=== PATIENT | female | born 1935 | race Caucasian/White ===

== ENCOUNTER → 2016-12-05 | Outpatient (CLI) | payer MEDICARE | END | disposition home or self-care (01) | LOC: PCVCCLINIC 10:05 | PROVIDERS: ATTEND Internal Medicine Cardiovascular Disease | DX: I25.10 Atherosclerotic heart disease of native coronary artery without angina pectoris (principal); R07.9 Chest pain, unspecified; I25.5 Ischemic cardiomyopathy; I10 Essential (primary) hypertension; E78.00 Pure hypercholesterolemia, unspecified; I77.9 Disorder of arteries and arterioles, unspecified; I34.0 Nonrheumatic mitral (valve) insufficiency | CPT/HCPCS: 93005; G0463 ==

== ENCOUNTER → 2017-05-17 | Outpatient (CLI) | payer MEDICARE | END | disposition home or self-care (01) | LOC: PCVCCLINIC 13:42 | PROVIDERS: ATTEND Internal Medicine Cardiovascular Disease | DX: I25.10 Atherosclerotic heart disease of native coronary artery without angina pectoris (principal); I10 Essential (primary) hypertension; E78.00 Pure hypercholesterolemia, unspecified; I34.0 Nonrheumatic mitral (valve) insufficiency; I25.5 Ischemic cardiomyopathy; M19.90 Unspecified osteoarthritis, unspecified site; Z95.5 Presence of coronary angioplasty implant and graft; Z79.82 Long term (current) use of aspirin; Z88.2 Allergy status to sulfonamides | CPT/HCPCS: 80061; 93005; G0463 ==

== ENCOUNTER → 2017-05-30 | Outpatient (CLI) | payer MEDICARE ==
--- NOTE | 2017-05-30 16:37 | PCVCIMAG ---
APPROVED REPORT Exam: Nuclear Stress Test Indication: CAD, Fatigue, Anginal Equivalen- Back Pain Patient Location: Out-Patient Stress Nurse: Bailey Pickens RN, Nuvia Mancera RN GA Tech:Serafin Desouza NMTCB Ht: 5 ft 5 in Wt: 120 lbs BSA: 1.59 m2 HR: 62 bpm BP: 127/61 mmHg BMI: 19.9 Rhythm: NSR Medical History Medical History: Age, Hyperlipidemia, HTN, Mitral Insuff, CAD Medications: ASA, Clopidogrel,Metoprol (held 24 hours) Ditropan, Protonix, Ranexa, Crestor Allergies: Statins, Sulfa Previous Cardiac Procedures: PCI, RCA 40% LM Exercise History: Physically active for age NM EXAM: Myocardial Perfusion REST/STRESS Imaging Protocol: Rest Tc-99m/Stress Tc-99m 1 day Resting Data Rest SPECT myocardial perfusion imaging was performed in supine position 45 minutes following the intravenous injection of 9.6 mCi of Tc-99m Sestamibi. Time of rest injection: 0930 Date: 05/30/2017 Pharmacologic Stress Pharmacologic stress test was performed by injecting Regadenoson 0.4 mg IV push followed by the intravenous injection of 27.4 mCi of Tc-99m Sestamibi. Time of stress injection: 1100 Date: 05/30/2017 The images were gated to evaluate regional wall motion and calculate left ventricular ejection fraction. Study Quality Study: Good Study Data Post stress, the left ventricular ejection was 76%.. SSS: 1 SRS: 0 SDS: 1 TID = 1.08. Perfusion There is a small area of moderately reduced uptake in the apical segment of the anterior wall which is seen on the stress images as well as the resting images. No evidence of stress induced ischemia.. Wall Motion Normal left ventricular size and function with no regional wall motion abnormalities. Nuclear Conclusion No evidence of stress induced ischemia.. Normal left ventricular size and function with no regional wall motion abnormalities. Post stress, the left ventricular ejection was 76%.. No prior study available for comparison. Interpreted by: Kp Washington MD Electronically Approved: 05/30/2017 12:55:23 Stress Test Details Stress Test: Pharmacologic stress was paired with low level exercise. HR Resting HR: 62 bpmMax Heart Rate (APMHR): 140 bpm Max HR Achieved: 113 bpmTarget HR (85% APMHR): 119 bpm % of APMHR: 80 Recovery HR: 77 bpm BP Resting BP: 127/61 mmHg Max BP: 144/78 mmHg ECG Resting ECG: Sinus Rhythm Stress ECG: Sinus Tachycardia, NSSTT changes ST Change: Downsloping ST depression, Inferior Maximum ST Deviation: 1.5 mm Arrhythmia: None Recovery ECG: Sinus Rhythm, nonspecific ST-T abnormalities Clinical Reason for Termination: Completed protocol Stress Symptoms: Dyspnea Exercise duration: min 55 sec Exercise capacity: 1.6 METs Stress ECG Conclusion Abnormal exercise stress ECG consistent with stress-induced myocardial ischemia. poss false pos in female pop <Conclusion> Abnormal exercise stress ECG consistent with stress-induced myocardial ischemia. poss false pos in female pop
== END | disposition home or self-care (01) ==
LOC: PCVCIMAG 09:07
PROVIDERS: ATTEND Internal Medicine Cardiovascular Disease
DX: I25.10 Atherosclerotic heart disease of native coronary artery without angina pectoris (principal); I10 Essential (primary) hypertension; E78.5 Hyperlipidemia, unspecified; M54.5 Low back pain; K52.9 Noninfective gastroenteritis and colitis, unspecified; I34.0 Nonrheumatic mitral (valve) insufficiency; R94.31 Abnormal electrocardiogram [ECG] [EKG]; Z95.5 Presence of coronary angioplasty implant and graft
CPT/HCPCS: 78452; 93017; A9500

== ENCOUNTER → 2017-12-19 | Outpatient (CLI) | payer MEDICARE | END | disposition home or self-care (01) | LOC: PCVCCLINIC 10:32 | DX: I25.10 Atherosclerotic heart disease of native coronary artery without angina pectoris (principal); I10 Essential (primary) hypertension; G20 Parkinson's disease; I34.0 Nonrheumatic mitral (valve) insufficiency; R53.83 Other fatigue; R94.31 Abnormal electrocardiogram [ECG] [EKG]; Z79.82 Long term (current) use of aspirin; Z79.899 Other long term (current) drug therapy | CPT/HCPCS: 80061; 93005; G0463 ==

== ENCOUNTER → 2018-08-07 | Outpatient (CLI) | payer MEDICARE | END | disposition home or self-care (01) | LOC: PCVCCLINIC 14:25 | PROVIDERS: ATTEND Internal Medicine Cardiovascular Disease | DX: I25.10 Atherosclerotic heart disease of native coronary artery without angina pectoris (principal); I34.0 Nonrheumatic mitral (valve) insufficiency; I25.5 Ischemic cardiomyopathy; E78.00 Pure hypercholesterolemia, unspecified; I10 Essential (primary) hypertension; R07.9 Chest pain, unspecified | CPT/HCPCS: 80061; 93005; G0463 ==

== ENCOUNTER → 2019-08-14 | Outpatient (CLI) | payer MEDICARE ==
--- NOTE | 2019-08-14 15:29 | PCVCIMAG ---
APPROVED REPORT Study performed: 08/14/2019 14:07:25 Exam: Stress Echocardiogram Indication: CAD s/p PCI, dyspnea, tricuspid regurgitation Patient Location: Echo lab Stress Nurse: Bailey Pickens RN Status: routine Ht: 5 ft 6 in HR: 72 bpm BP: 122/76 mmHg Rhythm: NSR Procedure The patient underwent an Exercise Stress Test using the Ok Protocol. Blood pressure, heart rate, and EKG were monitored. An Echocardiogram was performed by civil cadd technician in four stages in quad fashion. At peak stress, four selected images were obtained and placed side by side with resting images for comparison. Stress Test Details Stress Test: Exercise stress testing was performed using a Ok protocol. HR Resting HR: 72 bpmMax Heart Rate (APMHR): 138 bpm Max HR Achieved: 133 bpmTarget HR (85% APMHR): 117 bpm % of APMHR: 96 Recovery HR: 69 bpm HR response to stress: Normal HR response to stress BP Resting BP: 122/76 mmHg Max BP: 160/76 mmHg Recovery BP: 160/76 mmHg BP response to stress: Normal blood pressure response to stress. ECG Resting ECG: Sinus Rhythm Stress ECG: Sinus Rhythm ST Change: ischemic ST depression Maximum ST Deviation: -3.6 mm Arrhythmia: PACs Recovery ECG: Sinus Rhythm Recovery ST Change: Ischemic ST depression Recovery Arrhythmia: None Clinical Reason for Termination: Maximal effort Stress Symptoms: Dyspnea, Leg Fatigue Exercise duration: 4 min 20 sec Highest Stage Achieved: Stage 2: 2.5 mph at 12% grade. Exercise capacity: 7 METs Overall Exercise Capacity for Age: Poor Scale: Sedentary Angina Score: None Stress ECG Conclusion Beverly Treadmill Score is 22.0 which is Low risk. Pre-Stress Echo The resting Echocardiogram showed normal left ventricular contractility with an estimated Ejection Fraction of about >55%. Post-Stress Echo The stress Echocardiogram showed left ventricular contractility with an estimated Ejection Fraction of about 60%. The stress Echocardiogram demonstrated wall motion abnormality in the anteroapical wall. . Anteroapical hypokinesis consistent with known anatomy of occluded LAD with collaterals. No new RWMA. Clinical No clinical or ECG evidence for ischemia. Conclusion Clinical Response: Non-ischemic Exercise Capacity: Below Average Stress ECG Response: Ischemic Stress Echo Images: Equivocal- no new regional wall motion abnormalities The left ventricle is normal in size and wall thickness in both the rest and stress images. No regurgitation or stenosis present on pulmonic and aortic valves. Moderate tricuspid regurgitation with PAP with PAP of 46 mmHg. Mild mitral regurgitation, no stenosis. Dilated atrium and dilated right side. Other Information Study Quality: Adequate <Conclusion> The left ventricle is normal in size and wall thickness in both the rest and stress images. No regurgitation or stenosis present on pulmonic and aortic valves. Moderate tricuspid regurgitation with PAP with PAP of 46 mmHg. Mild mitral regurgitation, no stenosis. Dilated atrium and dilated right side.
== END | disposition home or self-care (01) ==
LOC: PCVCIMAG 13:57
PROVIDERS: ATTEND Internal Medicine Cardiovascular Disease
DX: I08.1 Rheumatic disorders of both mitral and tricuspid valves (principal); I25.10 Atherosclerotic heart disease of native coronary artery without angina pectoris; Z88.1 Allergy status to other antibiotic agents; Z88.8 Allergy status to other drugs, medicaments and biological substances
CPT/HCPCS: 93325; 93351